=== PATIENT | male | born 1990 | race Caucasian/White ===

== ENCOUNTER 2018-02-10 18:31 | Emergency (ER) | payer OTHER ==
[~2018-02-10] VITALS: Ht 175.3 cm; Wt 77.1 kg
--- OUTSIDE RECORDS SUMMARY | 2018-02-10 18:34 | XMS REPORT ---
Author Author [facility] Address Unknown Phone Unavailable Care Team Providers Care Life Skills Specialist Name Role Phone Unavailable Unavailable Payers Payer Name Policy Type Policy Number Effective Date Expiration Date Problems This patient has no known problems. Allergies, Adverse Reactions, Alerts Allergy Name Allergy Type Status Severity Reaction(s) Onset Date Inactive Date Treating Clinician Comments No Known Allergies DA Active U 2018-01-06 00:00:00 Medications This patient has no known medications.
--- NOTE | 2018-02-10 19:23 | Diagnostic Imaging Report ---
Exam: 3 views of the right foot Indication: Landed on right foot wrong while playing sports, medial area of foot pain Comparison: None Findings: The bones are well mineralized. No fractures, dislocations, lytic or blastic lesions. Normal appearance of the soft tissues. Impression: No evidence of a right foot fracture. Signed by: Dr. Venesas Avendaño M.D. on 02/10/2018 7:19 PM
== END 2018-02-10 19:45 | disposition home or self-care (01) ==
LOC: FSED 18:31
DX: S90.31XA Contusion of right foot, initial encounter (principal); Y93.67 Activity, basketball; Y92.310 Basketball court as the place of occurrence of the external cause
CPT/HCPCS: 99283